=== PATIENT | male | born 1995 | race Caucasian/White ===

== ENCOUNTER 2020-08-14 11:11 | Emergency (ER) | payer BC ==
[2020-08-14 13:06] LABS: HEMOGLOBIN 16.2 gm/dl (14.0-17.5); RED BLOOD COUNT 5.55 M/UL (4.20-5.50); WHITE BLOOD COUNT 6.9 K/UL (4.5-11.0)
[2020-08-14 13:34] LABS: BUN/CREATININE RATIO 13 (0-10)
[2020-08-14] MEDS ORDERED: TORADOL 10 MG T10 MG PO (14:31)
[2020-08-16 19:09] LABS: CHLAMYDIA TRACHOMATIS, NAA Negative (Negative); NEISSERIA GONORRHOEAE, NAA Negative (Negative)
== END 2020-08-14 14:40 | disposition home or self-care (01) ==
LOC: ER1 11:11
PROVIDERS: Physician Assistant
DX: N50.811 Right testicular pain (principal); Z88.5 Allergy status to narcotic agent
CPT/HCPCS: 76870; 80053; 81001; 85025; 99284

== ENCOUNTER → 2021-03-30 | Outpatient (CLI) | payer BC ==
[~2021-03-30] MED LIST: TORADOL 10 MG T10 MG PO
== END ==
LOC: EXRD 02-23 13:00
DX: N50.811 Right testicular pain (principal); N50.9 Disorder of male genital organs, unspecified
CPT/HCPCS: 76870